=== PATIENT | male | born 1935 | race Caucasian/White ===

== ENCOUNTER → 2017-01-14 | Outpatient (CLI) | payer OTHER | END | disposition home or self-care (01) | LOC: CVU 15:54 | PROVIDERS: ATTEND Nurse Practitioner Family | DX: I65.23 Occlusion and stenosis of bilateral carotid arteries (principal); E78.5 Hyperlipidemia, unspecified; I25.10 Atherosclerotic heart disease of native coronary artery without angina pectoris; Z86.73 Personal history of transient ischemic attack (TIA), and cerebral infarction without residual deficits; Z82.3 Family history of stroke | CPT/HCPCS: 93880 ==

== ENCOUNTER → 2017-04-30 | Outpatient (CLI) | payer OTHER | END | disposition home or self-care (01) | LOC: CFH 13:43 | PROVIDERS: ATTEND Internal Medicine Cardiovascular Disease | DX: I08.3 Combined rheumatic disorders of mitral, aortic and tricuspid valves (principal); I77.819 Aortic ectasia, unspecified site; I50.20 Unspecified systolic (congestive) heart failure; I48.2 Chronic atrial fibrillation; Z95.0 Presence of cardiac pacemaker; Z95.1 Presence of aortocoronary bypass graft; Z87.891 Personal history of nicotine dependence | CPT/HCPCS: 93306 ==

== ENCOUNTER → 2017-08-06 | Outpatient (CLI) | payer OTHER | END | disposition home or self-care (01) | LOC: CFH 15:03 | PROVIDERS: ATTEND Nurse Practitioner Family | DX: R90.82 White matter disease, unspecified (principal); R47.01 Aphasia | CPT/HCPCS: 70450 ==

== ENCOUNTER → 2019-12-09 | Outpatient (CLI) | payer MEDICARE | END | disposition home or self-care (01) | LOC: RAD 11:48 → EDSTATUS 12:30 | PROVIDERS: ATTEND Internal Medicine | DX: R91.8 Other nonspecific abnormal finding of lung field (principal); R06.02 Shortness of breath; J84.10 Pulmonary fibrosis, unspecified | CPT/HCPCS: 71250 ==

== ENCOUNTER 2020-02-04 15:39 | Emergency (ER) | payer MEDICARE ==
[~2020-02-04] VITALS: Ht 165.1 cm; Wt 42.0 kg
[~2020-02-04 15:39] MED LIST: ACID1TAB3 PO; AMOX1TAB61 PO; ASPI-515 PO; ATOR10TA9 PO; AZIT250T PO; ETHA400T17 PO; FINA5TAB4 PO; METO25TA91 PO; RIFA150C25 PO; RIVA1TAB PO; TRAV5DRO LEFTEYE; ZOLP5TAB6 PO
--- NOTE | 2020-02-04 15:59 | NUR ---
1ST BP FALSE READING PT 70S/40S PROVIDER AWARE BOLUS HANGING. PT DENIES DIZZINESS, SPEAKING IN FULL SENTENCES. SR 80S. HAS PACEMAKER. LOOSE COUGH.
[2020-02-04] MEDS ORDERED: PANTOPRAZOLE 80 MG in SODIUM CHLORIDE 0.9% 50 ML IVPB ONE (16:03)
[2020-02-04] MEDS ORDERED: PANTOPRAZOLE 80 MG in SODIUM CHLORIDE 0.9% 100 ML IV SCH (16:03)
--- NOTE | 2020-02-04 16:12 | NUR ---
MD AT BEDSIDE. 2 PIV EST. PT COUGHING, SMALL SMEAR OF DARK RED BLOOD NOTED ON TISSUE. LAB AT BEDSIDE.
--- NOTE | 2020-02-04 16:17 | NUR ---
SHAYY HAQ IN ROOM, BP IMPROVING. BC CANCELLED, PT CURRENTLY ON ABX. PPX GTT CANCELED. CXR AT BEDSIDE. LABS BY LAB.
--- NOTE | 2020-02-04 16:17 | NUR ---
PHARMACY SLIP SENT FOR PROTONIX INFUSION. ERPA AT BEDSIDE DISCUSSING CXR.
[2020-02-04 16:30] LABS: BASOPHILS # (AUTO) 0.02 x10^3/uL (0-0.1); BASOPHILS % (AUTO) 0 % (0-1); EOSINOPHILS % (AUTO) 1 % (1-7); LYMPHOCYTES # (AUTO) 1.55 x10^3/uL (1-3.4); LYMPHOCYTES % (AUTO) 19 % (22-44); MD NO; MEAN CORPUSCULAR HEMOGLOBIN 30.3 pg (27.5-34.5); MEAN CORPUSCULAR HGB CONC 32.6 g/dL (33.2-36.2); MEAN CORPUSCULAR VOLUME 92.8 fL (81-97); MEAN PLATELET VOLUME 6.9 fL (7.4-10.4); MONOCYTES # (AUTO) 0.45 x10^3/uL (0.2-0.8); MONOCYTES % (AUTO) 5 % (2-9); NEUTROPHILS % (AUTO) 75 % (42-75); PLATELET COUNT 316 x10^3/uL (130-400); RED CELL DISTRIBUTION WIDTH 15.7 % (9.4-14.8)
[2020-02-04] MEDS ORDERED: SODIUM CHLORIDE 0.9% 1,000ML IVBOLUS ONE ×2 (16:30→17:00)
[2020-02-04] MEDS ORDERED: SODIUM CHLORIDE FLUSH 10ML SYR IVF ONE ×2 (16:30)
--- NOTE | 2020-02-04 16:31 | NUR ---
TASK RN NOTE: PT SITTING RECLINED IN BED, RESPIRATIONS EVEN AND UNLABORED ON RA. PT MAKES PLEASANT CONVERSATION WITH STAFF. BLANKET APPLIED, HOB TO LEVEL OF COMFORT. SIDE RAILS UP, CALL LIGHT IN REACH.
[2020-02-04 16:40] LABS: ALANINE AMINOTRANSFERASE 19 U/L (12-78); ALBUMIN 1.9 g/dL (3.4-5.0); ANION GAP 6 mmol/L (5-15); CALCIUM 7.9 mg/dL (8.5-10.1); CHLORIDE 107 mmol/L (98-107); CREATININE 0.84 mg/dL (0.7-1.3)
[2020-02-04] MEDS ORDERED: LOSA25TA12 PO (16:40)
[2020-02-04] MEDS ORDERED: VITA0.4T18 PO (16:42)
[2020-02-04 16:44] LABS: ALKALINE PHOSPHATASE 69 U/L (45-117); BILIRUBIN,TOTAL 0.4 mg/dL (0.2-1.0); TOTAL PROTEIN 6.7 g/dL (6.4-8.2); TROPONIN I 0.017 ng/mL (0.000-0.045)
--- NOTE | 2020-02-04 16:54 | NUR ---
TASK RN NOTE: DISCUSSION WITH ERMD REGARDING PT'S BP. NS ADMINISTERED PER EMAR. NO FURTHER ORDERS AT THIS TIME.
--- NOTE | 2020-02-04 17:14 | NUR ---
priyanka gama at bedside, pt allowed to have visitor bc was covid neg when admitted. glasses at bedside. as
--- NOTE | 2020-02-04 18:07 | NUR ---
YAWH IN ROOM TO SPEAK W/ FAMILY. AND WANT TO STAY ON HOSPICE AND NOT HAVE CENTRAL LINE/PRESSORS. WANT TO GO HOME ON HOSPICE. BP LOW CHARTED BUT PER THIS IS NORMAL FOR PT.
--- NOTE | 2020-02-04 18:28 | NUR ---
SPOKE W CASE MGMT. PT TO GO HOME VIA CAR W/ THEN CALL AMBULANCE AND GET CARRIED INSIDE, BOTH PT AND AGREE WITH THIS PLAN. DISCUSSED END OF LIFE AND HOSPICE AND DYING AT LENGTH WITH PT AND , BOTH AGREE TO WANT TO GO HOME ON HOSPICE. PER CASE MGMT [facility] ACTIV[facility]ING HOS[facility]ICE. VIVIANA UPDATED, AT BEDSIDE TO SPEAK W/ AND FAMILY.
--- NOTE | 2020-02-04 19:04 | NUR ---
TBDC. OPTIFOAM ON BONY PROMINENCES.
[2020-02-04 19:05] VITALS: BP 82/52
== END 2020-02-04 19:40 | disposition home or self-care (01) ==
LOC: ED 15:44
DX: A41.9 Sepsis, unspecified organism (principal); J15.9 Unspecified bacterial pneumonia; R04.2 Hemoptysis; R06.02 Shortness of breath; R91.1 Solitary pulmonary nodule; I11.0 Hypertensive heart disease with heart failure; I50.9 Heart failure, unspecified; E78.00 Pure hypercholesterolemia, unspecified; Z87.891 Personal history of nicotine dependence
CPT/HCPCS: 36415; 71045; 80053; 83605; 83880; 84145; 84484; 85025; 93005; 99291; J7030